=== PATIENT | female | born 1980 | race Hispanic/Latino ===

== ENCOUNTER 2025-03-21 10:15 | Emergency (ER) | payer BC ==
[2025-03-21] MEDS ORDERED: Ketamine 50 MG/ML (10ML VIAL) ONE (11:36)
[2025-03-21] MEDS ORDERED: HYDROcodone/Acetaminophen 10/325 mg Tablet ONE (14:08)
== END 2025-03-21 14:25 | disposition home or self-care (01) ==
LOC: CSHERS 10:15
DX: S82.851A Displaced trimalleolar fracture of right lower leg, initial encounter for closed fracture (principal); X50.1XXA Overexertion from prolonged static or awkward postures, initial encounter
CPT/HCPCS: 27818; 96374; 99152; J2270